=== PATIENT | female | born 1980 | race Caucasian/White ===

== ENCOUNTER 2021-03-15 13:38 | Observation (INO) | payer OTHER ==
[2021-03-15 14:50] LABS: BASO % 0.7 % (0-2.0); EOS % 2.1 % (0-4.5); HEMATOCRIT 31.9 % (32.4-45.2); HEMOGLOBIN 10.4 GM/dL (10.7-15.3); LYMPH % 16.7 % (8-40); MCH 23.5 pg (25.7-33.7); MCHC 32.5 g/dl (32.0-36.0); MEAN CELL VOLUME 72.2 fl (80-96); MEAN PLT VOLUME 9.1 fl (7.5-11.1); MONO % 5.2 % (3.8-10.2); NEUT % 75.3 % (42.8-82.8); PLATELET COUNT 359 K/MM3 (134-434); RBC 4.42 M/mm3 (3.60-5.2); RDW 15.3 % (11.6-15.6); WHITE BLOOD COUNT 8.4 K/mm3 (4.0-10.0)
[2021-03-15 15:00] LABS: INR 1.03 (0.83-1.09); PROTHROMBIN TIME (PATIENT) 12.7 SEC (9.7-13.0)
[2021-03-15 15:02] LABS: ACTIVATED PTT 29.5 SECONDS (25.2-36.5)
[2021-03-15 15:25] LABS: CHLORIDE 109 mmol/L (98-107); SODIUM 140 mmol/L (136-145)
[2021-03-15 15:27] LABS: ALBUMIN 3.7 g/dl (3.4-5.0); ANION GAP 6 MMOL/L (8-16); BLOOD UREA NITROGEN 10.8 mg/dL (7-18); CALCIUM 8.6 mg/dL (8.5-10.1); CO2 26 mmol/L (21-32)
[2021-03-15 15:29] LABS: GLUCOSE,RANDOM 79 mg/dL (74-106); MAGNESIUM 1.9 mg/dL (1.8-2.4)
[2021-03-15 15:31] LABS: SGOT/AST 17 U/L (15-37); SGPT/ALT 10 U/L (13-61)
[2021-03-15 15:33] LABS: BILIRUBIN,TOTAL 0.2 mg/dL (0.2-1)
[2021-03-15 15:34] LABS: ALK PHOS 69 U/L (45-117)
[2021-03-15 15:44] LABS: CREATININE 0.7 mg/dL (0.55-1.3)
[2021-03-15] MEDS ORDERED: ACETAMINOPHEN 325 MG TABLET (FP) PO PRN (17:47)
[2021-03-15] MEDS ORDERED: ONDANSETRON 4 MG/2 ML VIAL IVPUSH PRN (17:47)
[2021-03-15 22:57] VITALS: BMI 35.7
[2021-03-16 07:40] LABS: CHOLESTEROL 178 mg/dL (50-200)
[2021-03-16 07:42] LABS: HDL CHOLESTEROL 36 mg/dL (40-60); LDL CHOLESTEROL (ONLY SJRH) 115 mg/dL (5-100)
[2021-03-16 07:45] LABS: TRIGLYCERIDES 73 mg/dL (0-150)
[2021-03-16] MEDS ORDERED: ENOXAPARIN NA (PORCINE) 40 MG/0.4 ML DISP.SYRIN SQ SCH (10:00)
[2021-03-16] MEDS ORDERED: ASPIRIN COATED 81 MG TABLET.EC PO SCH (10:00)
[2021-03-16 13:42] VITALS: BP 133/76; PULSE 71; TEMP 98.5
== END 2021-03-16 16:49 | disposition home or self-care (01) ==
LOC: JER 13:38 → UNDOADMOB 17:43 → JERBED 17:43 → J4W 21:39 → OBSVTOIN 03-16 09:00 → J4W 03-16 09:00 → INTOOBSV 03-16 09:00
PROVIDERS: ADMIT Internal Medicine; ATTEND Nurse Practitioner Family
PROC: 3E023GC Introduction of Other Therapeutic Substance into Muscle, Percutaneous Approach (ICD-10-PCS; principal; 2021-03-16)
DX: D64.9 Anemia, unspecified (principal); R07.9 Chest pain, unspecified; Z29.9 Encounter for prophylactic measures, unspecified
CPT/HCPCS: 36415; 71046-TC-FY; 80053; 80061; 82550; 83721; 83735; 84443; 84484; 84703; 85025; 85610; 85730; 93005; 93010; 93306-TC; 96372; 99285-25; C9803; G0378; U0003; U0005